=== PATIENT | female | born 1940 | race Caucasian/White ===

== ENCOUNTER → 2019-06-03 09:28 | Outpatient (CLI) | payer MEDICARE, SELFPAY ==
--- NOTE | ~2019-06-03 | DEXA_ITS ---
Bone Density Report Name: Kenya Olivier Age: 79 Sex: Female Ethnicity: White Date of : 1940 Indication: postmenopausal; screening for osteoporosis; height loss; Referring Provider: Tala Perez Study: Bone densitometry was performed. Exam Date: June 03, 2019 Accession number: [id number] Bone Density: Region BMD T-score Z-score Classification AP Spine (L1-L4) 1.113 0.6 3.1 Normal Femoral Neck (Left) 0.811 -0.3 1.8 Normal Total Hip (Left) 0.865 -0.6 1.3 Normal Femoral Neck (Right) 0.751 -0.9 1.3 Normal Total Hip (Right) 0.865 -0.6 1.3 Normal Total Hip Mean 0.865 -0.6 1.3 Normal World Health Organization criteria for BMD impression classify patients as: Normal (T-score at or above -1.0), Osteopenia (T-score between -1.0 and -2.5), or Osteoporosis (T-score at or below -2.5). 10-year Fracture Risk: FRAX not reported because: All T-scores for Spine Total, Hip Total, Femoral Neck at or above -1.0 Clinical Information Provided by Patient: Has used the following medications: Vitamin D Patient maximum height was 63 Menopause Age: 44 Does not regularly consume dairy products Drinks caffeinated beverages Onset of menses at age 14 Number of children 2 Impression: The patient has normal bone mass. Discussion: BONE DENSITY IS ABOVE THE MINIMUM DESIRABLE LEVEL AT ALL SKELETAL SITES TESTED. This patient?s bone mineral density is above the minimum desirable level (T-score -1.0 or better) at all sites measured. The patient should follow a healthful lifestyle (good nutrition with adequate calcium and vitamin D, and appropriate weight-bearing exercise). Follow-Up: Consider repeating this study in 5 years or sooner if there is some new clinical indication. Reported by: [facility] on 06/03/2019 10:05:00 AM. Reviewed, dictated and finalized at location ASean GEIGER
== END ==
PROVIDERS: PCP Family Medicine; Visit Provider Nurse Practitioner Family
DX: Z78.0 Asymptomatic menopausal state (principal)
CPT/HCPCS: 77080

== ENCOUNTER 2019-12-29 13:23 | Outpatient (CLI) | payer MEDICARE, OTHER, SELFPAY ==
--- NOTE | 2019-12-29 | ECG_ITS ---
Measurements Intervals [place] Rate: 56 P: 57 [place]: 134 QRS: 29 QRSD: 78 T: 32 QT: 417 QTc: 404 Interpretive Statements SINUS BRADYCARDIA POSSIBLE LEFT ATRIAL ENLARGEMENT BORDERLINE ECG Electronically Signed On 12-29-2019 14:37:39 CDT by Good Griggs D.O.
== END 2019-12-29 13:24 | disposition home or self-care (01) ==
PROVIDERS: PCP Family Medicine; Visit Provider Nurse Practitioner Family
DX: R94.31 Abnormal electrocardiogram [ECG] [EKG] (principal)
CPT/HCPCS: 93005

== ENCOUNTER 2020-01-10 09:14 | Outpatient (CLI) | payer MEDICARE, OTHER, SELFPAY ==
--- NOTE | ~2020-01-10 | MR_ITS ---
EXAMINATION: MR brain/brain stem wo con EXAM DATE: 01/10/2020 10:08 INDICATION: Posterior headaches. TECHNIQUE: Magnetic resonance imaging (MRI) of the brain/brain stem obtained without contrast. Sagitt al T1, axial diffusion, gradient echo (T2*), T1, T2, FLAIR sequences obtained. Comparison is made to prior examination from 08/11/2013. FINDINGS: There are no areas of restricted diffusion to suggest acute infarction. There is no acute hemorrhage seen on the T2*, a hemosiderin sensitive sequence. No intraparenchymal brain mass lesion. There is minimal periventricular and subcortical T2/FLAIR signal hyperintensity, nonspecific but pro bably related to small vessel ischemic disease (microangiopathy). There is moderate prominence of t he sulci and ventricles related to cerebral atrophy. There are no extra-axial collections. Flow vo ids are seen in the cerebral arteries on the T2-weighted sequences consistent with their expected pat ency. The orbits are unremarkable. Soft tissue is unremarkable. There is mild ethmoid and maxillar y sinus mucoperiosteal thickening. IMPRESSION: 1. No acute intracranial findings. 2. Chronic age related findings. 3. Mild ethmoid, maxillary mucoperiosteal thickening. Reviewed, dictated and finalized at location A.
== END 2020-01-10 09:15 | disposition home or self-care (01) ==
PROVIDERS: PCP Family Medicine; Visit Provider Nurse Practitioner Family
DX: H53.9 Unspecified visual disturbance (principal); R51 Headache; Z86.73 Personal history of transient ischemic attack (TIA), and cerebral infarction without residual deficits; R93.0 Abnormal findings on diagnostic imaging of skull and head, not elsewhere classified
CPT/HCPCS: 70551

== ENCOUNTER 2020-12-18 10:52 | Outpatient (CLI) | payer MEDICARE, OTHER, SELFPAY ==
--- NOTE | ~2020-12-18 | MM_ITS ---
EXAMINATION: MM screening ron BI w chiqui HISTORY: Screening mammogram TECHNIQUE: Craniocaudal and mediolateral oblique 3-D tomosynthesis images were obtained and synthetic 2-D images were generated. CAD analysis was submitted and interpreted. COMPARISON: Serial mammograms from June 04, 2016 through May 04, 2014 and 05/04/2014 limited l eft breast ultrasound examination BREAST PARENCHYMAL COMPOSITION: There are scattered areas of fibroglandular density. FINDINGS: There is a circumscribed low-density approximately 13 mm mass in the outer mid left breast, stable since 05/04/2014, consistent with benign process. Occasional benign calcifications. There is n o evidence of suspicious mass, calcification, or architectural distortion to suggest malignancy in ei ther breast. There has been no suspicious interval change. IMPRESSION: 1. No mammographic evidence of malignancy. 2. Recommend routine screening mammography in one year. BI-RADS Category 2: Benign finding(s). Reviewed, dictated and finalized at location A.
== END 2020-12-18 10:53 | disposition home or self-care (01) ==
LOC: ANHIMG 10:56
PROVIDERS: PCP Family Medicine; Visit Provider Obstetrics & Gynecology
DX: Z12.31 Encounter for screening mammogram for malignant neoplasm of breast (principal)
CPT/HCPCS: 77063; 77067

== ENCOUNTER 2021-07-24 10:48 | Outpatient (CLI) | payer MEDICARE, OTHER, SELFPAY ==
--- NOTE | ~2021-07-24 | US_ITS ---
EXAMINATION: US carotid duplex BI DATE: 07/24/2021 12:21 INDICATION: Carotid stenosis status post right carotid endarterectomy. Other cerebral infarction. TECHNIQUE: Grayscale, color Doppler, and pulsed Doppler images of the cervical carotid arteries were obtained. The degree of vessel stenosis is placed in one of the following categories: normal, <50%, 5 0-69%, >=70% but less than near-occlusion, near-occlusion, or total occlusion. Note that percent sten osis relative to normal distal artery lumen diameter is indirectly measured from velocity measurement s as described by Golden, et al. Radiology 2003; 229:340-346. COMPARISON: Ultrasound 01/26/2019 FINDINGS: RIGHT: The right common carotid artery (CCA) peak systolic velocity (PSV) is 87 cm/s. The right internal car otid artery (ICA) PSV is 96 cm/s. The right ICA end-diastolic velocity (EDV) is 32 cm/s. The right IC A/CCA PSV ratio is 1.1. Grayscale and color Doppler images yield an estimate of <50% diameter reducti on from plaque in the ICA. There is antegrade flow in the right vertebral artery. LEFT: The left CCA PSV is 67 cm/s. The left ICA PSV is 106 cm/s. The left ICA EDV is 33 cm/s. The left ICA/ CCA PSV ratio is 1.6. Grayscale and color Doppler images yield an estimate of <50% diameter reduction from plaque in the ICA. There is antegrade flow in the left vertebral artery. IMPRESSION: 1. <50% stenosis in the right internal carotid artery. 2. <50% stenosis in the left internal carotid artery. Reviewed, dictated and finalized at location A.
[2021-07-24 12:33] LABS: Anion Gap 7 mmol/L (8-16); Blood Urea Nitrogen 17 mg/dL (7-17); Calcium 9.8 mg/dL (8.4-10.2); Carbon Dioxide 27 mmol/L (22-30); Chloride 103 mmol/L (98-107); Estimated Glomerular Filt Rate 53; Glucose 100 mg/dL (65-110); Sodium 137 mmol/L (137-145)
== END 2021-07-24 10:49 | disposition home or self-care (01) ==
PROVIDERS: PCP Family Medicine; Visit Provider Nurse Practitioner Adult Health
DX: I63.89 Other cerebral infarction (principal); Z98.890 Other specified postprocedural states; I51.89 Other ill-defined heart diseases; I65.23 Occlusion and stenosis of bilateral carotid arteries
CPT/HCPCS: 36415; 80048; 93880

== ENCOUNTER 2022-08-25 10:01 | Outpatient (CLI) | payer MEDICARE, OTHER, SELFPAY ==
--- NOTE | ~2022-08-25 | US_ITS ---
EXAMINATION: US carotid duplex BI DATE: 08/25/2022 10:31 INDICATION: History of carotid endarterectomy TECHNIQUE: Grayscale, color Doppler, and pulsed Doppler images of the cervical carotid arteries were obtained. The degree of vessel stenosis is placed in one of the following categories: normal, <50%, 5 0-69%, >=70% but less than near-occlusion, near-occlusion, or total occlusion. Note that percent sten osis relative to normal distal artery lumen diameter is indirectly measured from velocity measurement s as described by Golden, et al. Radiology 2003; 229:340-346. Notes: Normal: Peak systolic velocity <125 centimeters/sec and no plaque <50%. Peak systolic velocity <125 ( EDV <40; ICA/CCA PSV ratio <2.0; used these factors only a tandem lesions or low cardiac output or co ntralateral disease) 50-69 %: PSV 125-230 (EDV 40-100; ratio 2-4) >= 70% but less than near occlusion: PSV greater than 230 (EDV > 100; ratio> 4.0) Near Occlusion: PSV that is variable; markedly narrowed lumen Occlusion: Absent flow on color/spectral Doppler and no lumen on bernal scale. COMPARISON: Ultrasound dated 07/25/2019 FINDINGS: RIGHT: The right common carotid artery (CCA) peak systolic velocity (PSV) is 81 cm/s. The right internal car otid artery (ICA) PSV is 74 cm/s. The right ICA end-diastolic velocity (EDV) is 22 cm/s. The right IC A/CCA PSV ratio is 0.9. The external carotid artery (ECA) PSV is 95 cm/s. There is antegrade flow in the right vertebral artery. LEFT: The left CCA PSV is 66 cm/s. The left ICA PSV is 85 cm/s. The left ICA EDV is 26 cm/s. The left ICA/C CA PSV ratio is 1.3. The ECA PSV is 125 cm/s. There is antegrade flow in the left vertebral artery. IMPRESSION: 1. Less than 50% stenosis in the right internal carotid artery by sonographic criteria. 2. Less than 50% stenosis in the left internal carotid artery by sonographic criteria. Reviewed, dictated and finalized at location B. IMPRESSION: 1. Less than 50% stenosis in the right internal carotid artery by sonographic c santo. 2. Less than 50% stenosis in the left internal carotid artery by sonographic yessenia rubalcava.
== END 2022-08-25 10:02 | disposition home or self-care (01) ==
PROVIDERS: PCP Family Medicine; Visit Provider Internal Medicine Cardiovascular Disease
DX: I65.23 Occlusion and stenosis of bilateral carotid arteries (principal); Z98.890 Other specified postprocedural states; Z86.73 Personal history of transient ischemic attack (TIA), and cerebral infarction without residual deficits
CPT/HCPCS: 93880

== ENCOUNTER 2022-11-03 15:19 | Outpatient (CLI) | payer MEDICARE, OTHER, SELFPAY ==
--- NOTE | ~2022-11-03 | US_ITS ---
EXAMINATION: US venous doppler [facility] DATE: 11/03/2022 15:54 INDICATION: Left lower limb pain TECHNIQUE: Grayscale ultrasound images without and with compression and Doppler ultrasound images of the left lower extremity veins were obtained. COMPARISON: None. FINDINGS: The visualized portions of left common femoral vein, profunda (deep) femoral vein, femoral vein, popl iteal vein, peroneal veins, posterior tibial veins, gastrocnemius vein and greater saphenous vein out flow are patent. IMPRESSION: 1. No deep venous thrombosis in the left lower limb. Reviewed, dictated and finalized at location A.
== END 2022-11-03 15:20 | disposition home or self-care (01) ==
PROVIDERS: PCP Family Medicine; Visit Provider Podiatrist Foot & Ankle Surgery
DX: M79.89 Other specified soft tissue disorders (principal); M79.672 Pain in left foot
CPT/HCPCS: 93971

== ENCOUNTER → 2023-02-12 10:01 | Outpatient (CLI) | payer MEDICARE, OTHER, SELFPAY ==
--- NOTE | ~2023-02-12 | MM_ITS ---
EXAMINATION: MM screening ron BI w chiqui HISTORY: Screening mammogram TECHNIQUE: Craniocaudal and mediolateral oblique 3-D tomosynthesis images were obtained and synthetic 2-D images were generated. CAD analysis was submitted and interpreted. COMPARISON: 12/18/2020, 06/04/2016, 05/07/2015 BREAST PARENCHYMAL COMPOSITION: There are scattered areas of fibroglandular density. FINDINGS: There is a chronic cyst in the upper outer quadrant of the left breast. No suspicious mass, calcification, or architectural distortion are identified in either breast to suggest malignancy. Th ere has been no suspicious interval change. IMPRESSION: 1. No mammographic evidence of malignancy. 2. Recommend routine screening mammography while the patient remains in good health. BI-RADS Category 2: Benign finding(s). Reviewed, dictated and finalized at location A. IMPRESSION: 1. No mammographic evidence of malignancy. 2. Recommend routine screening mammography while the patient remains in good he alth. BI-RADS Category 2: Benign finding(s).
--- NOTE | ~2023-02-12 | DEXA_ITS ---
Bone Density Report Name: BRYAN SOTO Age: 82 Sex: Female Ethnicity: White Date of : 1940 Indication: postmenopausal; screening for osteoporosis; height loss; Referring Provider: DIRK CHACKO Study: Bone densitometry was performed. Exam Date: February 12, 2023 Accession number: [id number] Bone Density: Region BMD T-score Z-score Classification AP Spine (L1-L4) 1.163 1.1 3.8 Normal Femoral Neck (Left) 0.774 -0.7 1.7 Normal Total Hip (Left) 0.868 -0.6 1.5 Normal Femoral Neck (Right) 0.801 -0.4 1.9 Normal Total Hip (Right) 0.871 -0.6 1.5 Normal Total Hip Mean 0.870 -0.6 1.5 Normal World Health Organization criteria for BMD impression classify patients as: Normal (T-score at or above -1.0), Osteopenia (T-score between -1.0 and -2.5), or Osteoporosis (T-score at or below -2.5). 10-year Fracture Risk: FRAX not reported because: All T-scores for Spine Total, Hip Total, Femoral Neck at or above -1.0 Previous Exams: Region Exam Age BMD T-score BMD Change BMD Change Date g/cm2 vs Baseline vs Previous AP Spine(L1-L4) 02/12/2023 82 1.163 1.1 0.051* 0.051* 06/03/2019 79 1.113 0.6 Total Hip(Left) 02/12/2023 82 0.868 -0.6 0.003 0.003 06/03/2019 79 0.865 -0.6 Total Hip(Right) 02/12/2023 82 0.871 -0.6 0.006 0.006 06/03/2019 79 0.865 -0.6 *Denotes significance at 95% confidence level, LSC for AP Spine = 0.022 g/cm2, LSC for Total Hip = 0.027 g/cm2 Clinical Information Provided by Patient: Patient maximum height was 62.5 Menopause Age: 44 No regular weight bearing exercise Drinks caffeinated beverages Onset of menses at age 14 Number of children 2 Impression: The patient has normal bone mass. No significant bone loss was observed. Discussion: BONE DENSITY IS ABOVE THE MINIMUM DESIRABLE LEVEL AT ALL SKELETAL SITES TESTED. This patient?s bone mineral density is above the minimum desirable level (T-score -1.0 or better) at all sites measured. The patient should follow a healthful lifestyle (good nutrition with adequate calcium and vitamin D, and appropriate weight-bearing exercise). Follow-Up: Consider repeating this study in 5 years or sooner if there is some new clinical indication. Reported by: [facility] on 02/12/2023 10:53:00 AM. Reviewed, dictated and finalized at location ASean GEIGER
== END ==
PROVIDERS: PCP Family Medicine; Visit Provider Obstetrics & Gynecology
DX: Z12.31 Encounter for screening mammogram for malignant neoplasm of breast (principal); Z78.0 Asymptomatic menopausal state
CPT/HCPCS: 77063; 77067; 77080

== ENCOUNTER 2024-01-23 09:50 | Emergency (ER) | payer MEDICARE, SELFPAY ==
--- NOTE | 2024-01-23 09:58 | ED.URI ---
HPI - URI/Sore Throat General Chief Complaint: Upper Respiratory Infection Stated Complaint: Sinus Time Seen by Provider: 01/23/24 10:39 Source: patient and RN notes reviewed Mode of arrival: ambulatory Limitations: no limitations History of Present Illness HPI Narrative: 83-year-old female presents with concern for rhinorrhea, nasal congestion, headache, cough and chest congestion. She reports body aches. She denies known sick contacts. Reports she has been taking DayQuil and NyQuil. She denies fever MD elicited complaint: cough and sore throat Related Data Home Medications Medication Instructions Recorded Confirmed aspirin 81 mg tablet,delayed 81 mg PO DAILY 05/10/19 01/23/24 release atorvastatin 40 mg tablet 40 mg PO DAILY 08/15/20 01/23/24 hypochlorous acid 0.01 %-sodium 1 spray topical BID 09/16/22 01/23/24 chloride topical spray (Avenova) amlodipine 5 mg tablet 5 mg PO DAILY 08/06/23 01/23/24 Allergies Allergy/AdvReac Type Severity Reaction Status Date / Time No Known Allergies Allergy Verified 01/23/24 09:52 Review of Systems Review of Systems: CONSTITUTIONAL: Denies malaise, chills, sweats, or fever. EYES: Denies visual changes, redness, or discharge. ENT: Reports rhinorrhea, congestion. Denies sinus pain, otalgia and sore throat. CARDIOVASCULAR: Denies chest pain, palpitations, or edema. RESPIRATORY: Reports cough. Denies dyspnea. GASTROINTESTINAL: Denies abdominal pain, nausea, vomiting, diarrhea SKIN: Denies rash or itching. MUSCULOSKELETAL: Reports myalgia. NEUROLOGIC: Reports headache. All systems reviewed & are unremarkable except as noted in HPI and below PMFSH Past Medical History Medical History BETO (acute kidney injury) BMI 24.0-24.9, adult BMI 25.0-25.9,adult Bowel perforation Chronic dryness of both eyes Chronic infection CKD (chronic kidney disease) stage 3, GFR 30-59 ml/min Dry eye syndrome History of stroke History of vaginal delivery x2 Hyperlipidemia Hypertension Joint pain TIA (transient ischemic attack) Surgical History Surgical History H/O foot surgery History of cataract surgery History of colonoscopy 07/14/2017 History of right-sided carotid endarterectomy History of tubal ligation S/P rotator cuff surgery Family History Family History Father Family history of blood dyscrasia Acute myocardial infarction, Onset Age: 83 Cerebrovascular accident Mother Family history of malignant neoplasm of thyroid Acute myocardial infarction, Onset Age: 89 Sibling No problems noted. 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 Gender identity (if verbalized by the patient): Female Comments At time of signature, agree with nursing past medical, surgical, social and family history. There is no relevant family history pertinent to the presenting complaint Exam Narrative: GENERAL: Well-appearing, well-nourished, and in no acute distress. HEAD: Normocephalic EYES: PERRLA, conjunctivae clear ENT: Nares clear, turbinates edematous and erythematous, clear discharge. Mucous membranes moist. TM pearly bernal with dull light refl
[2024-01-23 10:02] VITALS: BP 133/71; PULSE 69; RESP 20; TEMP 37.5; O2SAT 100
[2024-01-23 10:40] LABS: EDCOVIDSCREEN Positive (Negative); EDINFLUASCREEN Negative (Negative); EDINFLUBSCREEN Negative (Negative)
== END 2024-01-23 10:55 | disposition home or self-care (01) ==
PROVIDERS: Emergency Provider Nurse Practitioner; PCP Family Medicine
DX: U07.1 COVID-19 (principal); I12.9 Hypertensive chronic kidney disease with stage 1 through stage 4 chronic kidney disease, or unspecified chronic kidney disease; N18.30 Chronic kidney disease, stage 3 unspecified; E78.5 Hyperlipidemia, unspecified; Z79.899 Other long term (current) drug therapy; Z79.82 Long term (current) use of aspirin; Z87.891 Personal history of nicotine dependence
CPT/HCPCS: 87426; 87804; 99213; G0463

== ENCOUNTER 2024-03-30 12:54 | Outpatient (CLI) | payer MEDICARE, SELFPAY ==
--- NOTE | ~2024-03-30 | US_ITS ---
EXAMINATION: US soft tissue chest DATE: 03/30/2024 13:13 INDICATION: Localized swelling, mass and lump, right sternoclavicular region. TECHNIQUE: Multiple grayscale and Doppler ultrasound images of the chest were obtained. COMPARISON: Right clavicle radiographs 03/30/2024 FINDINGS: There is enlargement of the right sternoclavicular joint capsule. No definite drainable flu id. IMPRESSION: 1. Enlargement of the right sternoclavicular joint capsule without definite drainable fluid. Reviewed, dictated and finalized at location A. CTION MOULDING MACHINE OPERATOR IMPRESSION: 1. Enlargement of the right sternoclavicular joint capsule without definite luc inable fluid.
--- NOTE | ~2024-03-30 | XR_ITS ---
XR clavicle RT Ordering provider: Carin Coleman APRN History: . I10 - Essential (primary) hypertension . Comparison: None. FINDINGS: BONES: No acute fracture or dislocation. Postoperative changes in the right humeral head. JOINT SPACES: Widening of the acromioclavicular joint most likely postoperative. SOFT TISSUES: Normal . IMPRESSION: No acute osseous abnormality of the right clavicle. Reviewed, dictated and finalized at location A. FINISHING MACHINE ADJUSTER
== END 2024-03-30 12:55 | disposition home or self-care (01) ==
LOC: MICIMG 12:55
PROVIDERS: PCP Family Medicine; Visit Provider Nurse Practitioner Adult Health
DX: R22.2 Localized swelling, mass and lump, trunk (principal); I10 Essential (primary) hypertension
CPT/HCPCS: 73000; 76604

== ENCOUNTER 2024-09-27 08:00 | Outpatient (CLI) | payer MEDICARE, SELFPAY ==
--- NOTE | ~2024-09-27 | MR_ITS ---
EXAMINATION: MR brain/brain stem wo con DATE: 09/27/2024 08:31 INDICATION: Other symptoms and signs involving cognitive function TECHNIQUE: Magnetic resonance imaging (MRI) of the brain and brainstem was performed without intraven ous contrast. Sequences included sagittal and axial T1-weighted SE, axial diffusion-weighted FS SE, a xial 3D SWAN, axial T2-weighted FLAIR, and axial T2-weighted FSE. Postcontrast axial and coronal T1-w eighted SE was obtained. Apparent diffusion coefficient (ADC) maps were created. COMPARISON: 01/10/2020 FINDINGS: There are no areas of restricted diffusion to suggest acute infarction. There are a couple small foci of encephalomalacia in the right frontal and parietal lobes consistent with sequela of old infarct. No intracranial hemorrhage or abnormal intracranial mass lesion. There are scattered areas of nonspec ific increased T2-weighted signal intensity in the cerebral white matter, predominantly involving the deep and periventricular white matter. There are no intraparenchymal signal abnormalities seen on th e other pulse sequences. Symmetric prominence of the sulci and subarachnoid spaces overlying the conv exities consistent with mild to moderate age-appropriate diffuse cerebral volume loss. The ventricle s are symmetric and normal in size. There are no abnormal extra-axial fluid collections. Flow voids a re seen in the cerebral arteries on the T2-weighted sequences consistent with their expected patency. Visualized orbits and soft tissues are unremarkable. Mild mucosal thickening the paranasal sinuses. IMPRESSION: 1. 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 No acute intracranial process. 2. Age-related changes including mild to moderate diffuse volume loss and mild scattered nonspecific white matter T2 hyperintensity consistent with chronic small vessel ischemic disease. Reviewed, dictated and finalized at location A. IMPRESSION: 1. 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 No acute intracranial process. 2. Age-related changes including mild to moderate diffuse volume loss and mild scattered nonspecific white matter T2 hyperintensity consistent with chronic sm all vessel ischemic disease.
--- OUTSIDE RECORDS SUMMARY | 2024-09-27 08:06 | XMS_ITS | Referral Summary ---
Author Organization [place] [id number] [facility] Address [address] [place] [address] Care Team Providers Care Roll Coverer Name Role Phone Albert Melo MD Primary Care Provider [phone] Allergies No known active allergies Medications aspirin 81 mg enteric coated tablet Take 1 tablet (81 mg total) by mouth daily Active omega-3/dha/epa/dpa /fish oil (OMEGA-3 2100 ORAL) Take 2 capsules by mouth daily Active cholecalciferol (VITAMIN D-3) 1,000 unit capsule Take 5 capsules (5,000 Units total) by mouth daily Active atorvastatin (LIPITOR) 40 mg tabletIndications:H istory of carotid endarterectomy Take 1 tablet by mouth once daily 90 tablet 1 5 Active amLODIPine (NORVASC) 5 mg tablet Take 1 tablet by mouth nightly 90 tablet 1 5 Active Active Problems Problem Noted Date Diagnosed Date History of carotid endarterectomy 05/31/2014 Overview (07/18/2016): Status post carotid endarterectomy History of tobacco use 05/31/2014 Overview (07/18/2016): History of tobacco abuse Dyslipidemia 05/31/2014 Overview (07/18/2016): Dyslipidemia Sensation of chest tightness 05/31/2014 Overview (07/18/2016): Chest pressure Stenosis of carotid artery 05/31/2014 Overview (07/18/2016): Carotid stenosis History of transient cerebral ischemia 5 Overview (07/18/2016): History of TIA (transient ischemic attack) 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 Gender Identity Not on file Sexual Orientation Not on file Last Filed Vital Signs Vital Sign Reading Time Taken Comments Blood Pressure 136/50 02/04/2024 8:32 AM CDT Pulse 59 02/04/2024 8:32 AM CDT Temperature - - Respiratory Rate 15 01/09/2021 10:41 AM CDT Oxygen Saturation 98% 02/04/2024 8:32 AM CDT Inhaled Oxygen Concentration - - Weight 61.2 kg (135 lb) 02/04/2024 8:32 AM CDT Height 160 cm (5' 3) 02/04/2024 8:32 AM CDT Body Mass Index 23.91 02/04/2024 8:32 AM CDT Plan of Treatment Not on file Insurance [employer] CHOICE MEDICARE PPO [employer] MEDICARE GOLD [facility] CHOICE MEDICARE PPO Care Teams Roll Coverer Relationship Specialty Start Date End Date Albert Melo MD [address] [place], [place] [id number] PCP - General Family Medicine 02/15/24
--- OUTSIDE RECORDS SUMMARY | 2024-09-27 08:06 | XMS_ITS | Clinical Summary ---
Author Organization [facility] Administrative Offices Address [address] [place] [address] Care Team Providers Care Claims Counsel Name Role Phone Albert Melo MD Primary Care Provider [phone] Allergies No known active allergies Medications No known medications Active Problems Problem Noted Date Diagnosed Date Wound, open, foot 07/21/2012 Resolved Problems Problem Noted Date Diagnosed Date Resolved Date DVT (deep venous thrombosis) 10/13/2012 12/09/2012 Social History Tobacco Use Types Packs/Day Years Used Date Smoking Tobacco: Former Smokeless Tobacco: Never Alcohol Use Standard Drinks/Week Comments Yes 0 (1 standard drink = 0.6 oz pur e alcohol) socially Comments No Sex and Gender Information Value Date Recorded Sex Assigned at Not on file 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 Gender Identity Not on file Sexual Orientation Not on file Occupation Industry Job Start Date Job End Date Not on file Not on file Not on file Not on file Last Filed Vital Signs Vital Sign Reading Time Taken Comments Blood Pressure 148/70 10/13/2012 10:42 AM CDT Pulse 56 08/31/2012 4:45 PM CDT Temperature 36.2 C (97.1 F) 08/31/2012 4:45 PM CDT Respiratory Rate 18 08/31/2012 4:45 PM CDT Oxygen Saturation 99% 08/31/2012 4:45 PM CDT Inhaled Oxygen Concentration - - Weight 64 kg (141 lb) 11/19/2012 2:29 PM CDT Height 157.5 cm (5' 2) 10/13/2012 10:42 AM CDT Body Mass Index 25.79 10/13/2012 10:42 AM CDT Plan of Treatment Health Maintenance Due Date Last Done Comments DTAP/TDAP/TD VACCINES (1 - Tdap) 1961 PNEUMOCOCCAL VACCINE 50+ YEARS (1 of 1 - PCV) 03/18/19 92 ZOSTER VACCINE (1 of 2) 1992 OSTEOPOROSIS SCREENING 2007 RSV VACCINE (60+ or ) (1 - 1-dose 75+ series) 2017 INFLUENZA VACCINE (#1) 2023 Medical Devices Implanted Type Area Outreach Worker Device Identifier Shelf Expiration Date Model / Serial / Lot Dental Implants Implanted:(Quant ity not on file) Explanted:(Quant ity not on file) Description:UPPPER AND LOWER (2 TOTAL) Permanent Upper Bridge Implanted:(Quant ity not on file) Explanted:(Quant ity not on file) Insurance MEDICARE PART A AND B Advance Directives For more information, please contact: [phone] * Full Code (Latest Code Status on File) Date Activated Date Inactivated Comments 08/31/2012 10:40 AM 08/31/2012 7:07 PM Care Teams Claims Counsel Relationship Specialty Start Date End Date Albert Melo MD [address] [place] [address] PCP - General Family Practice 05/12/12
--- OUTSIDE RECORDS SUMMARY | 2024-09-27 08:06 | XMS_ITS | Clinical Summary ---
Author Organization [place] [id number] Address [address] [place] [address] Care Team Providers Care Country Sales Manager Name Role Phone Albert Melo MD Primary Care Provider [phone] Allergies No known active allergies Medications aspirin [...] Influenza, Trivalent, Preservative Free, Intramu scular 12/12/2012 Medical History Medical History Date Comments Hx Other Medical Right carotid e ndarterectomy. 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 Gender Identity Not on file Sexual Orientation Not on file Obstetrics History Last Filed Vital Signs Vital Sign Reading [...] 02/04/2024 8:32 AM CDT Plan of Treatment Health Maintenance Due Date Last Done Comments Depression Screening 1940 Osteoporosis Screening-Bone Density Scan 1940 Hepatitis B Screening 1960 Zoster Vaccine (1 of 2) 1992 Well Visit 65+ 2007 Pneumococcal vaccine 65+ (2 of 2 - PPSV23) 01/12/2017 01/13/2016 Fall Risk Assessment 01/09/2022 01/09/2021 Influenza Vaccine (Season Ended) 2024 01/27/2019, 01/17/2018, 12/22/2016, Additional history exists DTaP/Tdap/Td Vaccine (2 - Td or Tdap) 06/14/2028 06/14/2018 Insurance [employer] MEDICARE PPO [employer] MEDICARE GOLD [employer] CHOICE MEDICARE PPO Care Teams Country Sales Manager Relationship Specialty Start Date End Date Albert Melo MD [address] [place] [address] PCP - General Family Medicine 02/15/24
--- OUTSIDE RECORDS SUMMARY | 2024-09-27 08:07 | XMS_ITS ---
Author Organization [facility] Address [address] [place], [place] [id number] Care Team Providers Care Farm Equipment Engine Mechanic Name Role Phone JESUS GUTHRIE Unavailable [phone] Answer, Declined Unavailable Unavailable BENNY HERNADEZ Unavailable [phone] REASON FOR VISIT Heel pain Medications Medication SIG (Take, Route, Frequency, Duration) Notes Start Date End Date Status methylPREDNISolone 4 MG as directed Orally one pack 023 Active Aspirin 81 81 MG 1 tablet Orally Once a day Active Social History Tobacco Use: Social History Observation Description Date Details (start date - stop date) Former Smoker NA - NA Tobacco Use/Smoking Question Answer Notes Tobacco use: former smoker Vital Signs Height 62 in 09/14/2024 Weight 130 lbs 09/14/2024 BMI 23.77 kg/m2 09/14/2024 Height-cm 157.48 cm 09/14/2024 Weight-kg 58.97 kg 09/14/2024 Encounters Encounter Location Date Provider Diagnosis [facility] [address] [place], [place] [id number] 09/14/2024 BENNY HERNADEZ Plantar fasciitis M72.2 ; Calcaneal spur of right foot M77.31 and Pain in right foot M79.671 Assessments Encounter Date Diagnosis (ICD Code) Assessment Notes Treatment Notes Treatment Clinical Notes Section Notes 09/14/2024 Plantar fasciitis (ICD-10 - M72.2) Heel Pain: Kenalog Injection: Following skin prep, a total of 3 ccs of a 1-1-1 mix of 0.5% marcaine plain, 1% lidocaine plain, and Kenalog was injected right medial plantar fascial origin I discussed anti-inflammatory treatment options and various means of pronation control with the patient. I educated the patient on icing and stretching, supportive shoegear, and the use of orthotic devices. Previous injection was helpful, given in mid July. Strapping was helpful. She was also going barefoot at home while using the foot strap. Then she bought some very flexible 3/4 orthotics called plantar soles and wore summer platform sandals. The pain and inflammation are worse than the original. 09/14/2024 Calcaneal spur of right foot (ICD-10 - M77.31) Arch Supports OTC: Discussed various options for supporting the foot. Patient wishes to try over the counter arch supports. I recommend PowerStep or SuperFeet inserts. She bought a pair to wear in tennis shoes 09/14/2024 Pain in right foot (ICD-10 - M79.671) Rest ice and elevate as needed. Patient was instructed to try an OTC topical pain reliever/anti-inf lammatory such as Voltaren Gel, Aspercreme with Lidocaine, or Biofreeze etc over the affected areas. Spot test on hand or somewhere visible prior to starting to watch for possible rash/allergic reaction Plan Of Treatment Treatment Notes Assessment Notes Plantar fasciitis Heel Pain: Kenalog Injection: Following skin prep, a total of 3 ccs of a 1-1-1 mix of 0.5% marcaine plain, 1% lidocaine plain, and Kenalog was injected right medial plantar fascial origin I discussed anti-inflammatory treatment options and various means of pronation control with the patient. I educated the patient on icing and stretching, supportive shoegear, and the use of orthotic devices. Previous injection was helpful, given in mid July. Strapping was helpful. She was also going barefoot at home while using the foot strap. Then she bought some very flexible 3/4 orthotics called plantar soles and wore summer platform sandals. The pain and inflammation are worse than the original. Calcaneal spur of right foot Arch Supports OTC: Discussed various options for supporting the foot. Patient wishes to try over the counter arch supports. I recommend PowerStep or SuperFeet inserts. She bought a pair to wear in tennis shoes Pain in right foot Rest ice and elevate as needed. Patient was instructed to try an OTC topical pain reliever/anti-inflammatory such as Voltaren Gel, Aspercreme with Lidocaine, or Biofreeze etc over the affected areas. Spot test on hand or somewhere visible prior to starting to watch for possible rash/allergic reaction Next Appt Details Provider Name:BENNY MELGAR, 10/05/2024 09:30:00 AM, [address], [facility], [place], [place], [id number], Progress Notes * Justine OLIVIERaDOB: [birth year] (84 yo F)Acc No.[id number]:09/14/2024 Patient: Rachel WILLIAMSON Provider: Christina HERNADEZ :1940 A ge:84 Y S ex:Female Date:09/14/2024 Address:[address] [facility] Subjective: * Chief Complaints: * 1 . Heel pain. * HPI: H PI: Follow Up Visit Christian florez presents for follow up visit for right heel pain. Patient states that at her last visit Dr. Kwna wanted to see how the heel did without a second injection. She states that the heel was doing fine with her inserts and strapping up until this weekend. She states that the pain had started to flare up on Thursday and she is unsure why. , [place]: [facility]. * ROS: G eneral / Constitutional: Patient denies c hills, fever, weakness, night sweats. P vikki complains of p ain. M usculoskeletal: Patient denies c hildhood foot problems, weakness. P atient complains of h eel pain. P eripheral Vascular: Patient denies u lceration of feet, cold extremities. ? S kin: Patient denies u lcerations, discoloration. ? N eurologic: Patient denies b alance difficulty, confusion, difficulty speaking, dizziness. * Medical History: H ypertension, transient ischemic attack (TIA). * Social History: T obacco Use: T obacco Use/Smoking T obacco use: f ormer smoker. D rugs/Alcohol: D o you drink alcohol?: Yes, Socially. * Medications: T aking methylPREDNISolone 4 MG Tablet Therapy Pack as directed Orally , Notes to Pharmacist: one pack, Taking Aspirin 81 81 MG Tablet Delayed Release 1 tablet Orally Once a day , Medication List reviewed and reconciled with the patient Objective: * Vitals: S hoe Size: 8, Wt: 130 lbs, Wt-k.97 kg, Ht: 62 in, Ht-cm: 157.48 cm, BMI: 23.77 Index, Body Surface Area: 1.6. * Examination: C onstitutional: Constitutional T he patient is awake, alert, well developed, well groomed and well nourished. . D ermatologic: Skin findings: S kin is warm, dry, supple with no breaks in the skin. . Nail pathology: N ails 1-5 bilateral are normal in appearance and thickness. No discoloration. . Ulcer: T here is no evidence of ulceration noted at this time . Hyperkeratotic Skin Lesion T here is no evidence of hyperkeratosis . M usculoskeletal: Muscle Strength M uscle strength is 5/5 in regards to dorsiflexion, plantarflexion, inversion, and eversion in bilateral lower extremities. . Foot Structure T he foot structure is noted to be normal bilaterally . Plantar Fascia T here is pain on palpation to the m edial band of the right plantar fascia near its attachment to the calcaneus. Gait T here is normal gait noted . N eurologic: Muscle power: 5 /5 bilaterally . Gross sensation G ross sensation is intact to light touch. . V ascular: Dorsalis pedis pulse: 2 /4 bilateral . Posterior tibial pulse: 2 /4 bilaterally . Capillary refill: l ess than 3 seconds bilaterally . Temperature gradient: w ithin normal limits . ? Assessment: * Assessment: 1. P lantar fasciitis - M72.2 (Primary) 2 . C alcaneal spur of right foot - M77.31 3 . P ain in right foot - M79.671 Plan: * Treatment: 2. C alcaneal spur of right foot Notes: Arch Supports OTC: Discussed various options for supporting the foot. Patient wishes to try over the counter arch supports. I recommend PowerStep or SuperFeet inserts. She bought a pair to wear in tennis shoes ? 3. P ain in right foot Notes: Rest ice and elevate as needed. Patient was instructed to try an OTC topical pain reliever/anti-inflammatory such as Voltaren Gel, Aspercreme with Lidocaine, or Biofreeze etc over the affected areas. Spot test on hand or somewhere visible prior to starting to watch for possible rash/allergic reaction * Immunizations: Immunization record has been reviewed and updated. * Procedure Codes: 2 0550 INJ TENDON SHEATH/LIGAMENT, Modifiers: RT * Billing Information: * Visit Code: 33602 Office Visit, Est Pt., Level 3. Modifiers: 25 * Procedure Codes: 55671 INJ TENDON SHEATH/LIGAMENT. Modifiers: RT * Electronic signature of ZELDA HERNADEZ DPM on 09/27/2024 at 08:06 AM CDT Sign off status: Pending * Provider: Christina HERNADEZ Date: 09/14/2024 Generated for Haley Lord on: 09/27/2024 08:06 AM CDT History and Physical Notes * HPI (History of Present Illness) Category Sub-Category Detail Notes Category Not es HPI Follow Up Visit Patient presents for follow up visit for right heel pain. Patient states that at her last visit Dr. Kwan wanted to see how the heel did without a second injection. She states that the heel was doing fine with her inserts and strapping up until this weekend. She states that the pain had started to flare up on Thursday and she is unsure why. , [place]: [facility] Examination Category Sub-Category Detail Notes Category Not es Constitutional Constitutional The patient is a wake, alert, well developed, well groomed and well nourished. Dermatologic Skin findings: Skin is warm, dr y, supple with no breaks in the skin. Nail pathology: Nails 1-5 bilateral are normal in appearance and thickness. No discoloration. Ulcer: There is no evidence of ulceration noted at this time Hyperkeratotic Skin Lesion There is no e vidence of hyperkeratosis Musculoskeletal Muscle Strength Muscle strength is 5/5 in regards to dorsiflexion, plantarflexion, inversion, and eversion in bilateral lower extremities. Plantar Fascia There is pain on pal pation to the medial band of the right plantar fascia near its attachment to the calcaneus Foot Structure The foot structure i s noted to be normal bilaterally Gait There is normal gait noted Neurologic Muscle power: 5/5 bilaterally Gross sensation Gross sensation is i ntact to light touch. Vascular Dorsalis pedis pulse: 2/4 bilateral Posterior tibial pulse: 2/4 bilaterally Capillary refill: less than 3 seconds bilaterally Temperature gradient: within normal limi ts
--- OUTSIDE RECORDS SUMMARY | 2024-09-27 08:07 | XMS_ITS | Patient Health Record ---
Author Organization [facility] Address [address] [place], [place] [address] Care Team Providers Care Transportation Assistant Name Role Phone JESUS GUTHRIE Unavailable [phone] Answer, Declined Unavailable Unavailable JESUS BOLAÑOS Unavailable [phone] BENNY HERNADEZ Unavailable [phone] Allergies No Known Allergies Reason For Referral No Information Medications Medication SIG (Take, Route, Frequency, Duration) Notes Start Date End Date Status methylPREDNISolone 4 MG as directed Orally one pack 023 Active Aspirin 81 81 MG 1 tablet Orally Once a day Active Immunizations Vaccine Route Administration Date Status Comme nts Influenza, seasonal, injecta ble, preservative free, 6-35 months Unknown 12/12/2012 Administered Influenza, seasonal, injecta ble, preservative free, 6-35 months Unknown 12/12/2012 Administered Influenza, seasonal, injecta ble, preservative free, 6-35 months Unknown 12/12/2012 Administered Social History Tobacco Use: Social History Observation Description Date Details (start date - stop date) Former Smoker NA - NA Tobacco Use/Smoking Question Answer Notes Tobacco use: former smoker Vital Signs Height-cm 157.48 cm 09/14/2024 Weight-kg 58.97 kg 09/14/2024 Height 62 in 09/14/2024 Weight 130 lbs 09/14/2024 BMI 23.77 kg/m2 09/14/2024 Encounters Encounter Location Date Provider Diagnosis [facility] [address] [place], [place] [id number] 09/14/2024 BENNY HERNADEZ Plantar fasciitis M72.2 ; Calcaneal spur of right foot M77.31 and Pain in right foot M79.671 [facility] [address] [place], [place] [id number] 07/28/2024 JESUS BOLAÑOS Plantar fasciitis M72.2 ; Calcaneal spur of right foot M77.31 and Pain in right foot M79.671 [facility] [address] [place], [place] [id number] 08/11/2024 JESUS BOLAÑOS Plantar fasciitis M72.2 ; Calcaneal spur of right foot M77.31 and Pain in right foot M79.671 Assessments Encounter Date Diagnosis (ICD Code) Assessment Notes Treatment Notes Treatment Clinical Notes Section Notes 07/28/2024 Plantar fasciitis (ICD-10 - M72.2) 07/28/2024 Calcaneal spur of right foot (ICD-10 - M77.31) 08/11/2024 Plantar fasciitis (ICD-10 - M72.2) 09/14/2024 Plantar fasciitis (ICD-10 - M72.2) Heel [...] a pair to wear in tennis shoes 08/11/2024 Calcaneal spur of right foot (ICD-10 - M77.31) 07/28/2024 Pain in right foot (ICD-10 - M79.671) 09/14/2024 Pain in right foot (ICD-10 - M79.671) Rest ice and elevate as needed. Patient was instructed to try an OTC topical pain reliever/anti-infl ammatory such as Voltaren Gel, Aspercreme with Lidocaine, or Biofreeze etc over the affected areas. Spot test on hand or somewhere visible prior to starting to watch for possible rash/allergic reaction 08/11/2024 Pain in right foot (ICD-10 - M79.671) 07/28/2024 Other Following skin prep, a total of 3 ccs of a 1-1-1 mix of 0.5% marcaine plain, Kenalog, and dexamethasone sodium phosphate was injected into the patients right plantar fascia. The patient was given heel stretching exercises. A removable strapping was applied to the patient's right foot. The patient was instructed on its use. 08/11/2024 Other The patient was given heel stretching exercises. A removable strapping was applied to the patient's right foot. The patient was instructed on its use. Plan Of Treatment Next Appt Details Provider Name:BENNY MELGAR, 10/05/2024 09:30:00 AM, [address], [facility], [place], [place], [id number], Insurance Providers Payer Name Payer Address Payer Phone Subscriber Number Group Number Insured Name Patient Relationship to Insured Coverage Start Date Coverage End Date [facility] [address] [place] [address] [id number] Rachel Olivier Self - patient is the insured Medical (General) History Medical History History ICD Code hypertension transient ischemic attack (TIA)
== END 2024-09-27 08:01 | disposition home or self-care (01) ==
LOC: ANHIMG 08:02
PROVIDERS: PCP Family Medicine; Visit Provider Nurse Practitioner Adult Health
DX: R41.89 Other symptoms and signs involving cognitive functions and awareness (principal); H53.9 Unspecified visual disturbance; R93.0 Abnormal findings on diagnostic imaging of skull and head, not elsewhere classified
CPT/HCPCS: 70551